=== PATIENT | female | born 1985 | race Caucasian/White ===

== ENCOUNTER 2016-07-10 15:51 | Emergency (ER) | payer OTHER ==
[~2016-07-10] VITALS: Ht 160 cm; Wt 49.9 kg
[~2016-07-10 15:51] MED LIST: AMOX875T PO; FLUT9.9S NS; HYDR-79 PO; HYDR-971 PO; NAPR500T PO
[2016-07-10 16:30] VITALS: BP 109/68
--- NOTE | 2016-07-10 16:34 | RAD ---
Left foot, 3 views, 07/10/2016: History: Foot injury, previous surgery Comparison is made to a study from 06/13/2016. A metallic plate with multiple screws remains in place transfixing the fracture of the proximal fifth metatarsal. The position of the plate appears to be unchanged. There is patchy bony demineralization. No new fracture is detected. IMPRESSION: 1. Stable, internally fixed fracture of the proximal fifth metatarsal. 2. Increasing patchy bony demineralization.
[2016-07-10] MEDS ORDERED: HYDR-971 PO (16:43)
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
== END 2016-07-10 16:58 | disposition home or self-care (01) ==
LOC: ER 15:51
DX: M79.672 Pain in left foot (principal); X58.XXXA Exposure to other specified factors, initial encounter; Y93.39 Activity, other involving climbing, rappelling and jumping off; Y99.8 Other external cause status; Y92.89 Other specified places as the place of occurrence of the external cause
CPT/HCPCS: 73630; 99284

== ENCOUNTER 2016-07-15 15:32 | Emergency (ER) | payer OTHER ==
[~2016-07-15] VITALS: Ht 160 cm; Wt 49.9 kg
--- NOTE | 2016-07-15 16:47 | ED.ADGEN ---
Past History Past Medical History: No Pertinent History Past Surgical History: Hysterectomy Alcohol Use: Occasionally Drug Use: None Adult General Chief Complaint Chief Complaint left lower extremity pain HPI HPI Patient is a 31 year old male who presents with left LE pain. Pain developed over the last day. She had gerard fracture surgery 5 weeks ago, was wearing a full boot immobilizer until today when she saw her surgeon. She report muscle wasting in that leg and when the pain was noticed, she appreciated swelling in the calf, which has somewhat improved. Pain in her leg is diffuse. She continues to have pain from her surgery. She had been taking norco and oxycodone for her post surgical pain. Reports ibuprofen and Tylenol "don't help ". No fevers. No h/o blood clots for her or family members. No chest pain or shortness of breath. Review of Systems Review of Systems Constitutional: Denies fever or chills [] Eyes: Denies change in visual acuity, redness, or eye pain [] HENT: Denies nasal congestion or sore throat [] Respiratory: Denies cough or shortness of breath [] Cardiovascular: denies chest pain GI: Denies abdominal pain, nausea, vomiting, bloody stools or diarrhea [] : Denies dysuria or hematuria [] Musculoskeletal: Denies back pain Integument: Denies rash or skin lesions [] Neurologic: Denies headache, focal weakness or sensory changes [] Current Medications Current Medications Current Medications Medications (Trade) Dose Ordered Sig/Kingsley Start Time Stop Time Status Last Admin Dose Admin Acetaminophen/ Hydrocodone Bitart (Lortab 5/325) 1 tab 1X ONCE 07/15/16 17:00 07/15/16 17:01 DC 07/15/16 16:51 1 TAB Allergies Allergies Allergies Coded Allergies Type Severity Reaction Last Updated Verified No Known Drug Allergies 05/24/15 No Physical Exam Physical Exam Constitutional: Well developed, well nourished, no acute distress, non-toxic appearance. [] HENT: Normocephalic, atraumatic, bilateral external ears normal, oropharynx moist, no oral exudates, nose normal. [] Eyes: PERRLA, EOMI, conjunctiva normal, no discharge. [] Neck: Normal range of motion, no tenderness, supple, no stridor. [] Cardiovascular:Heart rate regular with regular rhythm, no murmur [] Lungs & Thorax: Bilateral breath sounds clear to auscultation, no wheeze or crackles Abdomen: Bowel sounds normal, soft, no tenderness, no masses, no pulsatile masses. [] Skin: Warm, dry, no erythema, no rash. [] Back: No tenderness, no CVA tenderness. [] Extremities: LLE without appreciable edema, generalized posterior and thigh ttp , dp pulse 2+, well healed foot surgical scar, ROM in ankle intact, FROM knee, no erythema or increased warmth, no palpable cord. Neurologic: Alert and oriented X 3, normal motor function, normal sensory function, no focal deficits noted. [] Psychologic: Affect normal, judgement normal, mood normal. [] Current Patient Data Vital Signs Vital Signs Date Time Temp Pulse Resp B/P Pulse Ox O2 Delivery O2 Flow Rate FiO2 07/15/16 16:51 20 95 07/15/16 15:32 98.2 76 Room Air EKG EKG [] Radiology/Procedures Radiology/Procedures US LLE: Left leg venous Doppler study: Clinical indications: Left leg swelling and pain. Findings: Duplex sonography (including kimball scale evaluation and color flow and waveform spectral analysis) of the proximal aspect of the greater saphenous vein and the proximal aspect of the profunda femoral vein and the entire length of the common femoral and superficial femoral and popliteal veins and the tibioperoneal trunk and the proximal aspect of the posterior tibial and peroneal veins of the left leg was performed. Normal compressibility, augmentation of color Doppler flow after calf compression, and respiratory variation of Doppler flow is seen. Thus, there are no sonographic findings of deep venous thrombosis within these veins. Impression: There are no sonographic findings of deep venous thrombosis within the veins discussed above of the left lower extremity. Course & Med Decision Making Course & Med Decision Making Pertinent Labs and Imaging studies reviewed. (See chart for details) pt given 1 norco tab and US venous doppler ordered. No DVT on US. Recommend f/u with doctor. Heat, rest, elevation. Pt has new boot, hope symptoms will improve with new boot. Final Impression Final Impression leg pain[] Problems: Dragon Disclaimer Dragon Disclaimer This electronic medical record was generated, in whole or in part, using a voice recognition dictation system. CLARI COREAS MD Jul 15, 2016 16:47
[2016-07-15] MEDS ORDERED: HYDROCODONE/APAP 5/325MG TABLET. PO ONE (17:00)
--- NOTE | 2016-07-15 17:07 | RAD ---
Left leg venous Doppler study: Clinical indications: Left leg swelling and pain. Findings: Duplex sonography (including kimball scale evaluation and color flow and waveform spectral analysis) of the proximal aspect of the greater saphenous vein and the proximal aspect of the profunda femoral vein and the entire length of the common femoral and superficial femoral and popliteal veins and the tibioperoneal trunk and the proximal aspect of the posterior tibial and peroneal veins of the left leg was performed. Normal compressibility, augmentation of color Doppler flow after calf compression, and respiratory variation of Doppler flow is seen. Thus, there are no sonographic findings of deep venous thrombosis within these veins. Impression: There are no sonographic findings of deep venous thrombosis within the veins discussed above of the left lower extremity.
[2016-07-15 17:30] VITALS: BP 98/47
== END 2016-07-15 17:40 | disposition home or self-care (01) ==
LOC: ER 15:32
DX: M79.605 Pain in left leg (principal)
CPT/HCPCS: 93971; 99284-25

== ENCOUNTER → 2016-07-17 | Outpatient (CLI) | payer OTHER ==
[2016-07-15 17:30] VITALS: BP 98/47
--- NOTE | 2016-07-17 17:02 | RAD ---
Abdomen series with chest, 3 views, 07/17/2016: History: Abdominal pain There is a moderate amount of stool scattered throughout the colon. The abdominal gas pattern is otherwise unremarkable. No free air is seen in the abdomen. There is no evidence of organomegaly or abnormal abdominal calcifications. The heart size is normal. The lungs are clear. There is no evidence of pleural fluid. IMPRESSION: 1. Moderate amount of stool throughout the colon. 2. The abdomen is otherwise unremarkable.
== END | disposition home or self-care (01) ==
LOC: DXRADRC 14:47
PROVIDERS: ATTEND Physician Assistant Medical
DX: R10.32 Left lower quadrant pain (principal)
CPT/HCPCS: 74022

== ENCOUNTER 2016-07-21 19:05 | Emergency (ER) | payer OTHER ==
--- NOTE | 2016-07-21 19:49 | ACF ---
Admission Criteria Forms HEADACHES Clinical Indications for Admission to Inpatient Care (Place 'X' for any and all applicable criteria): Admission is indicated for ANY ONE of the following(1)(2)(3)(4): [X]I. Inpatient admission required rather than observational care (Also use Headaches: Observation Care as appropriate) because of ANY ONE of the following: [X]a) Severe pain requiring acute inpatient management [ ]b) Altered mental status that is severe or persistent [ ]c) Vomiting or dehydration that is severe or persistent [ ]d) New-onset focal neurologic deficit that is severe or persistent [ ]e) Hypertension requiring inpatient treatment [ ]f) Severe (new) neurologic findings requiring inpatient care as indicated by ANY ONE of following(9)(10): [ ]1) Papilledema [ ]2) Cerebral edema [ ]3) Mass effect on CT scan [ ]4) Cerebral bleeding, ischemia, or vasospasm(16) [ ]5) Hydrocephalus(17) [ ]6) Uncontrolled seizures [ ]g) IV infusion of anticoagulation, platelet inhibitors vasoactive, or antiarrhythmic medication. [ ]h) Cerebral bleeding, hydrocephalus, or vasospasm monitoring (16) [ ]i) Increased intracranial pressure or cerebral edema monitoring (17) [ ]j) Other condition, treatment or monitoring requiring inpatient admission [ ]II. Unruptured but threatening aneurysm or vascular malformation [ ]III. Venous sinus thrombosis [ ]IV. Increased intracranial pressure [ ]V. Cerebral spinal fluid leak with decreased intracranial pressure [ ]. Medication-overuse headache that has failed all outpatient management options [ ]VII. Vasculitis (eg, giant cell (temporal) arteritis, central nervous system vasculitis) requiring IV corticosteroids, IV antithrombotic therapy, or inpatient monitoring (eg, visual symptoms or findings, other ischemic manifestations)[A](10)(11) Extended stay beyond goal length of stay may be needed for (27): [ ]a) Intractable migraine [ ]b) Subarachnoid or intracranial hemorrhage [ ]c) Malignant hypertension [ ]d) Detoxification from drug withdrawal in medication-overuse headache (29) The original [facility] [employer] content created by [facility] has been revised. The portions of the content which have been revised are identified through the use of italic text or in bold, and Sandra Cullen has neither reviewed nor approved the modified material.All other unmodified content is copyright [facility]. Please see references footnoted in the original [facility] edition 2016 Admission Criteria Met?: Yes JUAN LUIS CAPPS. Jul 21, 2016 19:49
[2016-07-21] MEDS ORDERED: PROCHLORPERAZINE 10 MG/2 ML VIAL. IV ONE (20:20)
[2016-07-21] MEDS ORDERED: IV NORMAL SALINE 1,000ML 1,000 ML IV ONE (20:20)
[2016-07-21] MEDS ORDERED: diphenhydrAMINE 50 MG/ML VIAL IVP ONE (20:20)
[2016-07-21] MEDS ORDERED: LORazepam 2 MG/ML VIAL IV ONE (20:20)
--- NOTE | 2016-07-21 20:42 | PHYS DOC ---
General Chief Complaint: HEADACHE Stated Complaint: MIGRAINE Time Seen by MD: 19:22 Source: patient, family Problems: History of Present Illness Initial Comments Patient here for migraine headaches. Patient has long history of migraine headaches for which she's been seen in the ER on multiple occasions. Headache is located over the left side of the scalp, extending just before the near the occipital region. She says this is exactly the same as her usual migraine headaches. There's no history of injury or trauma. This one started earlier this morning. She was able take a nap when she woke up the headache was even worse. She's had no visual change but she does have photophobia. There is no speech change. There's no fever chills URI symptoms or cough. There's no chest pain or shortness of breath. She has some nausea but no vomiting. She's had decreased by mouth food and fluid intake. There is no abdominal pain. There is no change in bowel or bladder habits. She denies any acute focal extremity or neurologic complaints. Patient's taken some narcotic pain medication, which she had left over from foot surgery, for this home without help. She notes no other increased or decreasing factors. Patient's past medical history is remarkable for migraine headaches. She's recently had a foot fracture with surgical repair on the left. She also has depression and she takes trazodone at night for sleep. She smokes a half-pack of cigarettes daily. She is an occasional social user of ethanol. Allergies: Coded Allergies: No Known Drug Allergies (Unverified , 05/24/15) Past Medical History Medical History: migraines, other Surgical History: noncontributory, other Psychosocial History: depression Social History Smoker: less than 1 pack/day Alcohol: occasionally Review of Systems All Other Systems: Reviewed and Negative Physical Exam General Appearance: WD/WN, no apparent distress Eyes: bilateral eye EOMI, bilateral eye PERRL, bilateral eye normal inspection Ear, Nose, Throat: normal ENT inspection, normal pharynx, other Neck: full range of motion, supple, normal inspection Respiratory: lungs clear, normal breath sounds, no respiratory distress Cardiovascular: regular rate, rhythm, no edema Gastrointestinal: non tender, soft, no organomegaly Back: no CVA tenderness, no vertebral tenderness Extremities: non-tender, normal inspection, no pedal edema Neurologic/Psychiatric: internet manager II-XII nml as tested, no motor/sensory deficits, alert, normal mood/affect, oriented x 3 Skin: normal color Lymphatic: no adenopathy Comments Generally this is a thin white female in no acute distress. She sits upright with dark glasses on. Vitals are as noted. Pertinent findings on physical exam shows a head atraumatic normocephalic. She is mildly tender over the left scalp from the area just anterior to the ear, over the area, extending to the occipital condyle. She says palpation does increase reproduce her pain. There is no signs of trauma. Pupils are equal reactive light and accommodation. Extra ocular movements are intact. Ears and throat clear. Neck is supple without adenopathy or JVD. There's no meningeal signs. Chest is clear to auscultation bilaterally. Cardiac vascular exam shows regular rate and rhythm without murmur. The abdomen is soft and nontender without masses or megaly. There is no perineal findings. Back shows no CVA tenderness. Extremity show no rashes, cyanosis, or edema. Neurologic exam shows patient awake alert oriented 4. Cranial nerves II through XII grossly intact. Strength 5 over 5 equal all sites tested. There are no gross sensory deficits. She stands without difficulty and Romberg is negative. Remainder of physical exam is clinically unremarkable. Orders, Labs, Meds Old charts note multiple prior ER visits for variety of issues. This is her 10th visit this year alone. She's been seen here on several occasions for a foot fracture and than postoperative pain following fracture. She's also been seen for sinusitis, minor injuries, migraine headaches, and abdominal pain extending back in the last several years. Most recent visit for migraine was in April of this year where she received Compazine and Benadryl and Valium and reported relief of pain. Early in the ED course, I did ask the patient about her history of frequent and excessive ED use. Patient says some these visits are because when she calls her foot doctor for continued postoperative pain, they refer her to the emergency department. She also says that she has trouble getting into a doctor, and is now transitioning from her current physician who is a natural path to a new doctor. Her also says that they come here because the care that they always get is after hours, and when they try to going to urgent care center in [place] it's too busy. Patient states she understands why was asking because her mother had a history of drug abuse and of an aneurysm. I indicated I was actually asking because sometimes people use the ER frequently, we can set her with some resources like a primary care referral which may be helpful. [id number] Patient resting comfortably in the ED. She says her headache is essentially gone at this time. I discussed with the patient this really does seem to be a recurrence of her usual migraine. As is no new history of injury or trauma, her headache is not different in any way the usual migraine, suggest that I didn't think labs or CT scan would be of any benefit. Patient is agreeable to defer further workup as well. She already has oxycodone at home postoperatively that she can use for pain. She has Imitrex at home, but she says she probably requires an increased dose but we'll follow this up with her primary care physician. She also says she has some nausea medicine at home as well declines any prescriptions here. We'll ask her to follow up with primary care for her recurrent headaches or to return the ER sooner as needed if worsen anyway. As noted, she is currently looking for new primary care physician and we hope she is able to find a new physician. She looks well, in no acute discomfort distress, neurologically intact, and okay for discharge home with family. FARHANA REBOLLAR MD Jul 21, 2016 20:41
[2016-07-21 21:55] VITALS: BP 101/62
== END 2016-07-21 21:55 | disposition home or self-care (01) ==
LOC: ER 19:09
DX: G43.909 Migraine, unspecified, not intractable, without status migrainosus (principal); R11.0 Nausea; F32.9 Major depressive disorder, single episode, unspecified; F17.210 Nicotine dependence, cigarettes, uncomplicated
CPT/HCPCS: 96361; 96374; 96375; 99284; J0780; J1200; J2060; J7030

== ENCOUNTER → 2016-07-29 | Outpatient (CLI) | payer OTHER ==
[2016-07-21 21:55] VITALS: BP 101/62
--- NOTE | 2016-07-29 15:52 | RAD ---
Left foot radiographs History: Left foot fracture, Soni fracture 7 weeks ago, trouble flattening the toes. Comparison: 07/10/2016. Findings: AP, lateral, and oblique views of left foot. 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 Fixation hardware with orthopedic plate and multiple orthopedic screws can be seen involving the fifth metatarsal. Appearance of the hardware is similar to previous study. Fracture line is not well seen and there is evidence of bridging callus formation. Impression: 1. Healing of fifth metatarsal fracture site. No interval change in appearance of hardware. 2. Disuse osteopenia.
== END | disposition home or self-care (01) ==
LOC: DXRADRC 14:13
PROVIDERS: ATTEND Family Medicine
DX: S92.352D Displaced fracture of fifth metatarsal bone, left foot, subsequent encounter for fracture with routine healing (principal); M85.872 Other specified disorders of bone density and structure, left ankle and foot; X58.XXXD Exposure to other specified factors, subsequent encounter
CPT/HCPCS: 73630

== ENCOUNTER 2016-09-29 00:29 | Emergency (ER) | payer OTHER ==
[~2016-09-29] VITALS: Ht 160 cm; Wt 50.6 kg
--- NOTE | 2016-09-29 01:02 | PHYS DOC ---
Past History Past Medical History: Depression, Migraines Past Surgical History: Hysterectomy, Other Alcohol Use: None Drug Use: None Adult General HPI HPI 1-year-old female with a history of anxiety depression and migraines now presents to the emergency department complaining of gradual onset of headache typical for her over the last few hours patient involved a migraine and it gradually has gotten worse. Shoulder and vomiting. No prodromal symptoms prior to onset. Total sweats or shaking chills. No stiff neck. Mild photophobia. No neurologic complaints besides headache. Patient has a history of depression but she is not suicidal or significantly depressed at this time. Review of Systems Review of Systems Constitutional: Denies fever or chills [] Eyes: Denies change in visual acuity, redness, or eye pain [] HENT: Denies nasal congestion or sore throat [] Respiratory: Denies cough or shortness of breath [] Cardiovascular: No additional information not addressed in HPI [] GI: Denies abdominal pain, nausea, vomiting, bloody stools or diarrhea [] : Denies dysuria or hematuria [] Musculoskeletal: Denies back pain or joint pain [] Integument: Denies rash or skin lesions [] Neurologic: Denies headache, focal weakness or sensory changes [] Endocrine: Denies polyuria or polydipsia [] Allergies Allergies Allergies Coded Allergies Type Severity Reaction Last Updated Verified No Known Drug Allergies 05/24/15 No Physical Exam Physical Exam 31-year-old female in no acute distress appears to be in mild discomfort/ supple neck /nonfocal neurologic exam Constitutional: Well developed, well nourished, no acute distress, non-toxic appearance. [] HENT: Normocephalic, atraumatic, bilateral external ears normal, oropharynx moist, no oral exudates, nose normal. [] Eyes: PERRLA, EOMI, conjunctiva normal, no discharge. [] Neck: Normal range of motion, no tenderness, supple, no stridor. [] Cardiovascular:Heart rate regular rhythm, no murmur [] Lungs & Thorax: Bilateral breath sounds clear to auscultation [] Abdomen: Bowel sounds normal, soft, no tenderness, no masses, no pulsatile masses. [] Skin: Warm, dry, no erythema, no rash. [] Back: No tenderness, no CVA tenderness. [] Extremities: No tenderness, no cyanosis, no clubbing, ROM intact, no edema. [] Neurologic: Alert and oriented X 3, normal motor function, normal sensory function, no focal deficits noted. [] Psychologic: Affect normal, judgement normal, mood normal. [] EKG EKG [] Radiology/Procedures Radiology/Procedures [] Course & Med Decision Making Course & Med Decision Making Pertinent Labs and Imaging studies reviewed. (See chart for details) Signs and symptoms consistent with migraine headache with gradual onset typical for patient. Afebrile and well-appearing with a supple neck. Nonfocal neurologic exam. Treatment initiated with anti-inflammatory medication, steroids , Benadryl and Reglan. Patient improved on reevaluation appears comfortable. No further workup or treatment indicated. Patient agrees with outpatient follow-up and strict return precautions will be given. [] Dragon Disclaimer Dragon Disclaimer This chart was dictated in whole or in part using Voice Recognition software in a busy, high-work load, and often noisy Emergency Department environment. It may contain unintended and wholly unrecognized errors or omissions. Departure Departure: Impression: Primary Impression: Migraine headache Disposition: 01 HOME, SELF-CARE Condition: IMPROVED Referrals: EVERETT HILL DO (PCP) Patient Instructions: Migraine Headache Additional Instructions: Your suffering from a migraine headache today. Rest and drink plenty of fluids. Ibuprofen 600 mg every 6 hours as needed for pain. You may get relief with Benadryl. Take Reglan as needed as you may find it affords she is significant headache relief. Follow-up with your doctor tomorrow and return immediately for new severe or worsening symptoms Scripts Metoclopramide Hcl (REGLAN) 10 Mg Tablet 10 MG PO Q6HRS Y for NAUSEA, #14 TAB Prov: BROOK LEDEZMA MD 09/29/16 BROOK LEDEZMA MD Sep 29, 2016 01:02
[2016-09-29] MEDS ORDERED: DEXAMETHASONE SOD PHOS 10 MG/ML VIAL IM ONE (01:15)
[2016-09-29] MEDS ORDERED: METOCLOPRAMIDE HCL 10 MG/2 ML VIAL. IM ONE (01:15)
[2016-09-29] MEDS ORDERED: KETOROLAC 60 MG/2 ML VIAL. IM ONE (01:15)
[2016-09-29] MEDS ORDERED: diphenhydrAMINE HCL 25 MG CAPSULE PO ONE (01:15)
[2016-09-29] MEDS ORDERED: METO10TA81 PO (01:30)
[2016-09-29 01:35] VITALS: BP 100/61
== END 2016-09-29 01:40 | disposition home or self-care (01) ==
LOC: ER 00:29
DX: G43.909 Migraine, unspecified, not intractable, without status migrainosus (principal); F41.8 Other specified anxiety disorders
CPT/HCPCS: 96372; 99284; J1100; J1885; J2765; Q0163

== ENCOUNTER 2016-12-05 20:01 | Emergency (ER) | payer OTHER ==
[~2016-12-05] VITALS: Ht 160 cm; Wt 51.0 kg
[~2016-12-05 20:01] MED LIST changes: +METO10TA81 PO
[2016-12-05 20:05] VITALS: BP 118/65
[2016-12-05] MEDS ORDERED: naproxen (20:27)
[2016-12-05] MEDS ORDERED: prozac (20:27)
[2016-12-05] MEDS ORDERED: trazodone (20:27)
[2016-12-05] MEDS ORDERED: IBUP800T19 PO (20:27)
--- NOTE | 2016-12-05 20:41 | PHYS DOC ---
Past History Past Medical History: Anxiety, Depression, Migraines, Other Past Surgical History: Hysterectomy, Other Alcohol Use: Rarely Drug Use: None Adult General Chief Complaint Chief Complaint: HEADACHE HPI HPI Patient is a 31-year-old female brought to the ED by her with the complaint of migraine headache. The migraine has been present all day. She woke up with it. It's typical for her migraines. It is left-sided. She's had nausea with it. She has photophobia. She has tried naproxen and ibuprofen without relief. She also feels like her left lower back is "out", she feels like it's "catching ". This has been present all day but getting worse. She has not injured her back recently. She has had some urinary frequency but says she's been drinking lots of fluids. She has no dysuria. Denies fever or chills. Patient does smoke cigarettes. Patient has seen a neurologist in [facility] about her migraines. She tried Imitrex but it didn't work. She was also tried on some other medication, can't remember what it was, but it didn't work. She has not been back to report to her neurologist that the migraines continue and the medication is not effective. Review of Systems Review of Systems Constitutional: Denies fever or chills [] Eyes: Positive photophobia HENT: Denies nasal congestion or sore throat [] : As in history of present illness Musculoskeletal: Left low back pain as in history of present illness Allergies Allergies Allergies Coded Allergies Type Severity Reaction Last Updated Verified No Known Drug Allergies 12/05/16 No Physical Exam Physical Exam Constitutional: Well developed, well nourished, no acute distress, non-toxic appearance. Alert, mentating normally, warm and dry. HENT: Normocephalic, atraumatic, bilateral external ears normal, nose normal. [ ] Eyes: conjunctiva normal, no discharge. [] Neck: Normal range of motion, no stridor. [] Skin: Warm, dry, no erythema, no rash. [] Back: No tenderness, no CVA tenderness. Patient indicates area of back pain over her left posterior superior iliac spine approximately, there is no skin color change, no swelling, no abnormality noted, no significant tenderness to palpation. Extremities: No tenderness, no cyanosis, no clubbing, ROM intact, no edema. [] Neurologic: Alert and oriented X 3, normal motor function, no focal deficits noted. Strength 5 over 5 and equal bilaterally, normal speech. EKG EKG [] Radiology/Procedures Radiology/Procedures [] Course & Med Decision Making Course & Med Decision Making Pertinent Labs and Imaging studies reviewed. (See chart for details) 31-year-old female with a long history of migraines presents with a typical migraine today. She and her state that she has been to the emergency department many times for migraines. We discussed treatment options. She has not been vomiting and is not dehydrated, thinks that she would do just as well with an injection and then to go home. See instructions for plan. I urged her to follow up with her neurologist. [] Dragon Disclaimer Dragon Disclaimer This chart was dictated in whole or in part using Voice Recognition software in a busy, high-work load, and often noisy Emergency Department environment. It may contain unintended and wholly unrecognized errors or omissions. Departure Departure: Impression: Primary Impression: Migraine Disposition: 01 HOME, SELF-CARE Condition: STABLE Patient Instructions: General Headache Without Cause, [id number], Migraine Headache, [id number] Additional Instructions: No driving for 12 hours due to the medications you were given. Home to rest, try to sleep all night in a dark quiet room. As we discussed, make a follow-up appointment with your neurologist to let them know that the medications are not helping and see if you can try something else. SULLY HOBSON MD Dec 05, 2016 20:41
[2016-12-05] MEDS ORDERED: ORPHENADRINE CITRATE 60 MG/2 ML VIAL. IM ONE (21:00)
[2016-12-05] MEDS ORDERED: KETOROLAC 60 MG/2 ML VIAL. IM ONE (21:00)
[2016-12-05] MEDS ORDERED: METOCLOPRAMIDE 10 MG TABLET PO ONE (21:30)
== END 2016-12-05 21:00 | disposition home or self-care (01) ==
LOC: ER 20:01
DX: G43.909 Migraine, unspecified, not intractable, without status migrainosus (principal); F17.210 Nicotine dependence, cigarettes, uncomplicated; F41.9 Anxiety disorder, unspecified; F32.9 Major depressive disorder, single episode, unspecified
CPT/HCPCS: 96372; 99284; J1885; J2360; J8597

== ENCOUNTER 2017-08-30 08:38 | Emergency (ER) | payer OTHER ==
[~2017-08-30] VITALS: Ht 160 cm; Wt 53.4 kg
[~2017-08-30 08:38] MED LIST changes: +IBUP800T19 PO; +NAPR-683 PO; -NAPR500T PO; +naproxen; +prozac; +trazodone
[2017-08-30] MEDS ORDERED: IV NORMAL SALINE 1,000ML 1,000 ML IV SCH (08:52)
--- NOTE | 2017-08-30 09:12 | EKG ---
[address] [address] Test Date: 2017-08-30 Test Time: 09:04:38 Pat Name: DEONTE HECTOR Department: Room: Gender: F Peer Counselor: : 1985 Requested By: MARCIA PEREZ Order Number: [id number] Reading MD: Measurements Intervals [place] Rate: 98 P: 64 ID: [id number] QRS: 60 QRSD: 74 T: 39 QT: 334 QTc: 428 Interpretive Statements SINUS RHYTHM LEFT ATRIAL ABNORMALITY ABNORMAL ECG RI6.01 Compared to ECG 12/29/2015 20:02:23 Atrial abnormality now present T-wave abnormality no longer present ST (T wave) deviation no longer present
--- NOTE | 2017-08-30 09:24 | PHYS DOC ---
Past History Past Medical History: Anxiety, Depression, Migraines, Other Past Surgical History: Hysterectomy, Other Alcohol Use: Occasionally Drug Use: None Adult General Chief Complaint Chief Complaint: COUGH HPI HPI 32-year-old female presents with 5 day history of cough and progressive shortness of breath. The cough is sometimes productive of yellowish sputum. The last couple of days she has felt more short of breath and had episodes where she just couldn't stop coughing. She is a smoker. She denies chest pain, diaphoresis, fever, or chills. She was treated 3 weeks ago for a sinus infection with azithromycin. She has no history of asthma or COPD. No history of allergies. Review of Systems Review of Systems Constitutional: Denies fever or chills [] Eyes: Denies change in visual acuity, redness, or eye pain [] HENT: Denies nasal congestion or sore throat [] Respiratory: Has cough with mild shortness of breath [] Cardiovascular: No additional information not addressed in HPI [] GI: Denies abdominal pain, nausea, vomiting, bloody stools or diarrhea [] : Denies dysuria or hematuria [] Musculoskeletal: Denies back pain or joint pain [] Integument: Denies rash or skin lesions [] Neurologic: Denies headache, focal weakness or sensory changes [] Endocrine: Denies polyuria or polydipsia [] All other systems were reviewed and found to be within normal limits, except as documented in this note. Current Medications Current Medications Current Medications Medications (Trade) Dose Ordered Sig/Kingsley Start Time Stop Time Status Last Admin Dose Admin Sodium Chloride 1,000 ml @ 1,000 mls/hr Q1H 08/30/17 08:52 08/30/17 09:51 Allergies Allergies Allergies Coded Allergies Type Severity Reaction Last Updated Verified No Known Drug Allergies 08/30/17 No Physical Exam Physical Exam Constitutional: Well developed, well nourished, no acute distress, non-toxic appearance. [] HENT: Normocephalic, atraumatic, bilateral external ears normal, oropharynx moist, no oral exudates, nose normal. [] Eyes: PERRLA, EOMI, conjunctiva normal, no discharge. [] Neck: Normal range of motion, no tenderness, supple, no stridor. [] Cardiovascular:Heart rate regular rhythm, no murmur [] Lungs & Thorax: Bilateral diffuse expiratory wheezing [] Abdomen: Bowel sounds normal, soft, no tenderness, no masses, no pulsatile masses. [] Skin: Warm, dry, no erythema, no rash. [] Back: No tenderness, no CVA tenderness. [] Extremities: No tenderness, no cyanosis, no clubbing, ROM intact, no edema. [] Neurologic: Alert and oriented X 3, normal motor function, normal sensory function, no focal deficits noted. [] Psychologic: Affect normal, judgement normal, mood normal. [] Current Patient Data Vital Signs Vital Signs Date Time Temp Pulse Resp B/P (MAP) Pulse Ox O2 Delivery O2 Flow Rate FiO2 08/30/17 08:38 98.1 128 24 97 Room Air EKG EKG Normal sinus rhythm, rate 98, normal axis, no ST elevations or depressions[] Radiology/Procedures Radiology/Procedures Chest, PA and Lateral: Technique: PA and lateral views of the chest were obtained. History: Shortness of breath, cough for 5 days. Comparison: None. Findings: The heart and pulmonary vasculature appear within normal limits. The lungs are clear. The pleural margins are clear. Impression: No acute chest process is seen. Electronically signed by: Cristhian Parker MD (08/30/2017 9:19 AM) [facility][] Course & Med Decision Making Course & Med Decision Making Pertinent Labs and Imaging studies reviewed. (See chart for details) Patient had bilateral wheezing so I gave her a DuoNeb treatment. The patient was given 2 DuoNeb treatments with some improvement. She had subjective improvement in her breathing. I also gave 125 of Solu-Medrol and will give her a three-day prescription for prednisone at home. [] Dragon Disclaimer Dragon Disclaimer This electronic medical record was generated, in whole or in part, using a voice recognition dictation system. Departure Departure: Referrals: NON,STAFF (PCP) MARCIA PEREZ DO August 30, 2017 09:24
[2017-08-30] MEDS ORDERED: IPRATRPIUM/ALBUTEROL 0.5/2.5MG 3 ML NEBU. NEB ONE ×2 (09:30→10:45)
[2017-08-30 09:58] LABS: ALBUMIN 3.8 g/dL (3.4-5.0); ALBUMIN/GLOBULIN RATIO 1.1 (1.0-1.7); CALCIUM 9.1 mg/dL (8.5-10.1); GFR 64.3; POTASSIUM 4.2 mmol/L (3.5-5.1); TOTAL BILIRUBIN 0.5 mg/dL (0.2-1.0); TOTAL PROTEIN 7.4 g/dL (6.4-8.2)
[2017-08-30 10:04] LABS: BASO # 0.1 x10^3/uL (0.0-0.2); BASO % 1 % (0-3); EOS # 0.2 x10^3/uL (0.0-0.7); EOS % 3 % (0-3); HEMATOCRIT 45.2 % (36.0-47.0); HEMOGLOBIN 15.3 g/dL (12.0-15.5); LYMPH # 2.3 x10^3/uL (1.0-4.8); LYMPH % 29 % (24-48); MEAN CORPUSCULAR HEMOGLOBIN 33 pg (25-35); MEAN CORPUSCULAR HGB CONC 34 g/dL (31-37); MEAN CORPUSCULAR VOLUME 97 fL (79-100); MONO # 0.6 x10^3/uL (0.0-1.1); MONO % 8 % (0-9); NEUT # 4.8 x10^3uL (1.8-7.7); NEUT % 60 % (31-73); PLATELET COUNT 239 x10^3/uL (140-400); RED BLOOD COUNT 4.68 x10^6/uL (3.50-5.40); RED CELL DISTRIBUTION WIDTH 13.3 % (11.5-14.5)
[2017-08-30] MEDS ORDERED: methylPREDNISolone SOD SUCC PF 125 MG/2 ML VIAL. IV ONE (11:00)
[2017-08-30] MEDS ORDERED: PRED50TA PO (11:14)
[2017-08-30 11:21] VITALS: BP 98/67
== END 2017-08-30 11:21 | disposition home or self-care (01) ==
LOC: ER 08:38
DX: R06.2 Wheezing (principal); R06.02 Shortness of breath; R09.3 Abnormal sputum; G43.909 Migraine, unspecified, not intractable, without status migrainosus; F41.9 Anxiety disorder, unspecified; F32.9 Major depressive disorder, single episode, unspecified
CPT/HCPCS: 36415; 71046; 80053; 84484; 85025; 93005; 94640; 96374; 99285; J2930; J7620; J7030

== ENCOUNTER → 2018-11-10 | Outpatient (CLI) | payer SELFPAY ==
[~2018-11-10] MED LIST changes: +HYDR-1179 PO; +HYDR-3165 PO; -HYDR-79 PO; -HYDR-971 PO; +PRED50TA PO
--- NOTE | 2018-11-10 17:43 | RAD ---
EXAM: Lumbar spine 7 views with flexion/extension. HISTORY: Low back pain and lower extremity radiculopathy. COMPARISON: None. FINDINGS: A neutral, alignment is normal. On flexion and extension, there is no abnormal translational motion. Vertebral body heights are maintained, and no fractures are identified. Intervertebral disc heights are maintained. IMPRESSION: 1. No fracture or clear degenerative change. Electronically signed by: Yajaira Miner MD (11/10/2018 5:40 PM) [facility]
== END | disposition home or self-care (01) ==
LOC: DXRAD 17:11
PROVIDERS: ATTEND Registered Nurse
DX: M54.9 Dorsalgia, unspecified (principal)
CPT/HCPCS: 72114

== ENCOUNTER 2019-04-17 20:18 | Emergency (ER) | payer BC ==
[~2019-04-17] VITALS: Ht 160 cm; Wt 49.4 kg
--- NOTE | 2019-04-17 20:23 | PHYS DOC ---
Past History Past Medical History: Anxiety, Depression, Migraines, Other Past Surgical History: Hysterectomy, Other Alcohol Use: Occasionally Drug Use: None Adult General Chief Complaint Chief Complaint: ".. This all started.. .will some pain... and adenopathy on the Lt side.. I went to [facility]...they didnt find anything... the I went to Dr. Bullard.. he started me on doxycycline and prednisone.. I got this really painful rash on the left side of my head and face... I can't even stand the touch left side of my forehead HPI HPI Patient is a 33 year old female who presents with above hx and complaints of zoster rash on the left side of her scalp and forehead. (Trigemina V1 distribution left). Patient did have chickenpox as a child. Patient has had somewhat of a viral onset the last 3 weeks. Patient does work as a schoolteacher. No history of immunosuppression. No history of IV drug use. Patient has some blisters in scalp and Lt anterior cervical chain adenopathy. Review of Systems Review of Systems Constitutional: History of fever or chills [] Eyes: Denies change in visual acuity, redness, or eye pain [] HENT: Hx nasal congestion or sore throat . Recent history of rash on the left side of forehead and scalp. Mild cervical chain adenopathy on left Respiratory: Denies cough or shortness of breath [] Cardiovascular: No additional information not addressed in HPI [] GI: Denies abdominal pain, nausea, vomiting, bloody stools or diarrhea [] : Denies dysuria or hematuria [] Musculoskeletal: Denies back pain or joint pain [] Integument: Zoster lesions left side of head and scalp Neurologic: Denies headache, focal weakness or sensory changes [] Endocrine: Denies polyuria or polydipsia [] All other systems were reviewed and found to be within normal limits, except as documented in this note. Family History Family History Noncontributory Current Medications Current Medications See nursing for home meds Allergies Allergies Allergies Coded Allergies Type Severity Reaction Last Updated Verified No Known Drug Allergies 08/30/17 No Physical Exam Physical Exam Constitutional: Well developed, well nourished, in acute distress, non-toxic appearance. [] HENT: Normocephalic, atraumatic, bilateral external ears normal, oropharynx moist, no oral exudates, nose normal. [-Except ]Zoster on left forehead and scalp. Trigeminal V1 distribution Eyes: PERRLA, EOMI, conjunctiva normal, no discharge. [] Neck: Normal range of motion, no tenderness, supple, no stridor. []Mild adenopathy anterior left cervical . Cardiovascular:Heart rate regular rhythm, no murmur [] Lungs & Thorax: Bilateral breath sounds clear to auscultation [] Abdomen: Bowel sounds normal, soft, no tenderness, no masses, no pulsatile masses. Old surgical scar Skin: Warm, dry, no erythema, zoster rash. [] Back: No tenderness, no CVA tenderness. [] Extremities: No tenderness, no cyanosis, no clubbing, ROM intact, no edema. [] Neurologic: Alert and oriented X 3, normal motor function, normal sensory fu nction, no focal deficits noted. [] Psychologic: Affect anxious, judgement normal, mood normal. [] EKG EKG [] Radiology/Procedures Radiology/Procedures [] Course & Med Decision Making Course & Med Decision Making Pertinent Labs and Imaging studies reviewed. (See chart for details) Follow-up with Dr. Bullard to evaluate for immunosuppression. Review ED labs with Dr. Bullard. Patient to take either acyclovir 800 mg every 4 hours or famciclovir 800 mg 3 times a day. Advised patient she is infectious status, if she has fevers or blisters. Tylenol and ibuprofen for pain for marked pain may use Vicoprofen 1. Herpetic Zoster Trigeminal V 1 distribution left 2. Cervical adenopathy . [] Dragon Disclaimer Dragon Disclaimer This electronic medical record was generated, in whole or in part, using a voice recognition dictation system. Departure Departure: Disposition: HOME/RESIDENCE PRIOR TO ADM Condition: STABLE Referrals: MICHAEL BULLARD MD (PCP) Scripts Acyclovir (ACYCLOVIR) 800 Mg Tablet 800 MG PO every 4 hrs PRN for 5 x day, #10 TAB Prov: EVARISTO NORTH MD 04/17/19 Famciclovir (FAMCICLOVIR) 500 Mg Tablet 500 MG PO TID for zoster for 7 Days, #21 TAB Prov: EVARISTO NORTH MD 04/17/19 Hydrocodone/Ibuprofen (HYDROCODONE-IBUPROFEN 7.5-200 ) 1 Each Tablet 1 TAB PO PRN Q6HRS PRN for PAIN, #30 TAB 0 Refills Prov: EVARISTO NORTH MD 04/17/19 Sabino Disclaimer This chart was dictated in whole or in part using Voice Recognition software in a busy, high-work load, and often noisy Emergency Department environment. It may contain unintended and wholly unrecognized errors or omissions. EVARISTO NORTH MD Apr 17, 2019 20:23
[2019-04-17] MEDS ORDERED: ACYC800T PO (20:55)
[2019-04-17] MEDS ORDERED: FAMC500T PO (20:55)
[2019-04-17] MEDS ORDERED: HYDR-1179 PO (20:55)
[2019-04-17] MEDS ORDERED: ACYCLOVIR 200 MG CAPSULE PO ONE (21:00)
[2019-04-17] MEDS ORDERED: LIDOCAINE 5% TOPICAL OINTMENT 35GM TUBE. TP ONE (21:00)
[2019-04-17 21:43] VITALS: BP 109/61
[2019-04-17 21:48] LABS: BASO % 0 % (0-3); EOS # 0.1 x10^3/uL (0.0-0.7); EOS % 1 % (0-3); HEMATOCRIT 40.5 % (36.0-47.0); HEMOGLOBIN 13.8 g/dL (12.0-15.5); LYMPH % 37 % (24-48); MEAN CORPUSCULAR HEMOGLOBIN 32 pg (25-35); MEAN CORPUSCULAR HGB CONC 34 g/dL (31-37); MEAN CORPUSCULAR VOLUME 94 fL (79-100); MONO # 0.7 x10^3/uL (0.0-1.1); MONO % 8 % (0-9); NEUT # 4.3 x10^3uL (1.8-7.7); NEUT % 53 % (31-73); PLATELET COUNT 228 x10^3/uL (140-400); RED BLOOD COUNT 4.33 x10^6/uL (3.50-5.40); RED CELL DISTRIBUTION WIDTH 13.2 % (11.5-14.5); WHITE BLOOD COUNT 8.1 x10^3/uL (4.0-11.0)
[2019-04-17 21:58] LABS: CALCIUM 9.1 mg/dL (8.5-10.1); GFR 63.9; POTASSIUM 3.3 mmol/L (3.5-5.1)
[2019-04-17 22:03] LABS: ALBUMIN 4.2 g/dL (3.4-5.0); DIRECT BILIRUBIN 0.1 mg/dL (0.0-0.2); TOTAL BILIRUBIN 0.3 mg/dL (0.2-1.0); TOTAL PROTEIN 7.7 g/dL (6.4-8.2)
== END 2019-04-17 22:11 | disposition home or self-care (01) ==
LOC: ER 20:18
DX: B02.22 Postherpetic trigeminal neuralgia (principal); R59.0 Localized enlarged lymph nodes; F41.9 Anxiety disorder, unspecified; F32.9 Major depressive disorder, single episode, unspecified; G43.909 Migraine, unspecified, not intractable, without status migrainosus
CPT/HCPCS: 36415; 80048; 80076; 84443; 85025; 86703; 86705; 86709; 86803; 87340; 99284

== ENCOUNTER 2019-08-28 21:54 | Emergency (ER) | payer BC ==
[~2019-08-28] VITALS: Ht 160 cm; Wt 50.0 kg
[~2019-08-28 21:54] MED LIST changes: +ACYC800T PO; +FAMC500T3 PO
--- NOTE | 2019-08-28 22:03 | PHYS DOC ---
Past History Past Medical History: Anxiety, Depression, Hyperthyroid, Hypothyroid, Migraines, Ovarian Cyst, STD Past Medical History Polycystic ovary. HPV Past Surgical History: Hysterectomy, Other Additional Past Surgical Histo: LEFT FOOT Smoking: Cigarettes Alcohol Use: Occasionally Drug Use: None General Adult HPI: HPI: .."..I am worried...I got a STD...I had a one night stand about two months ago.. and I am having invasive thoughts or fear... I got a STD...I took 7 days of doxycycline I had left over from a previous bronchitis infection... I been t alking to my sister ..who said not to worry about it..but I can't stop... the worry.. and anxiety.. I am getting obsessed.. with the thoughts... I have gotten STD... I am getting depressed... Cannot sleep... I have had a history of HPV... And had a abnormal Pap exam and ended up having to have a hysterectomy..." Patient is a 34 year old female who presents with above hx and complaints of "female problems.". Patient advises she had a incident where she became intoxicated and had unprotected sex approximately 2 months ago. Patient did take 7 days of doxycycline antibiotic, left over from a bronchitis infection. Patient denies any current discharge but has had some dysuria. Patient has had a history of HPV and eventual hysterectomy 4 years ago.. Patient advised the un protected sexual contact was vaginal intercourse. No rectal intercourse. No oral sex. Patient does not know if the sexual partner has symptoms. Patient has had 12 sexual partners in her lifetime. Patient does have significant medical history for polycystic ovary, autoimmune thyroiditis history and anxiety disorder. Patient advises anxiety disorder did require meds and counseling at one time. The pt. follows with as primary. Endocrinology-Dr. Middleton at [facility]. Patient has had travel outside the [place] area , visit her sister in [place], [place] on August 07 for approximately 1 week. No specific ill contacts. No history immunosuppression. No current fevers. Review of Systems: Review of Systems: Constitutional: Denies fever or chills Eyes: Denies change in visual acuity HENT: Denies nasal congestion or sore throat Respiratory: Denies cough or shortness of breath Cardiovascular: Denies chest pain or edema GI: Denies abdominal pain, nausea, vomiting, bloody stools or diarrhea : Hx dysuria Musculoskeletal: Denies back pain or joint pain Integument: Denies rash Neurologic: Denies headache, focal weakness or sensory changes Endocrine: Denies polyuria or polydipsia Lymphatic: Denies swollen glands Psychiatric: Complaints of depression & anxiety Heart Score: Risk Factors: Risk Factors: DM, Current or recent (<one month) smoker, HTN, HLP, family history of CAD, obesity. Risk Scores: Score 0 - 3: 2.5% MACE over next 6 weeks - Discharge Home Score 4 - 6: 20.3% MACE over next 6 weeks - Admit for Clinical Observation Score 7 - 10: 72.7% MACE over next 6 weeks - Early Invasive Strategies Family History: Family History: Noncontributory to presentation Current Medications: Current Meds: See nursing for home meds Allergies: Allergies: Allergies Coded Allergies Type Severity Reaction Last Updated Verified No Known Drug Allergies 08/30/17 No Physical Exam: PE: Constitutional: in acute emotional distress, non-toxic appearance. [] HENT: Normocephalic, atraumatic, bilateral external ears normal, oropharynx moist, no oral exudates, nose normal. [] Eyes: PERRLA, EOMI, conjunctiva normal, no discharge. [] Neck: Normal range of motion, no tenderness, supple, no stridor. [] Cardiovascular:Heart rate regular rhythm, no murmur [] Lungs & Thorax: Bilateral breath sounds equal apex with scattered wheezes auscultation [] Abdomen: Bowel sounds normal, soft, no tenderness, no masses, no pulsatile masses. Vaginal exam. Findings of hysterectomy scar. No marked discharge. Skin: Warm, dry, no erythema, no rash. [] Tattoos. Back: No tenderness, no CVA tenderness. [] Extremities: No tenderness, no cyanosis, no clubbing, ROM intact, no edema. Foot scar. White painted toe nails Neurologic: Alert and oriented X 3, normal motor function, normal sensory function, no focal deficits noted. [] Psychologic: Affect extremely anxious, judgement normal, mood depressed but denies suicidal ideation. Does admit to recurring invasive thoughts of having a cquired STD infection. EKG: EKG: [] Radiology/Procedures: Radiology/Procedures: [] Course & Med Decision Making: Course & Med Decision Making Pertinent Labs and Imaging studies reviewed. (See chart for details) Patient follow-up pending lab tests. Patient to take complete course of doxycycline 100 mg twice a day for 14 days. Patient then to complete 3 days of Diflucan. Patient to follow-up with [facility]. Patient to follow-up with primary care. Patient encouraged to consider returning to counseling for her anxiety and depressive thoughts. Patient practice safe sex. Patient to keep follow-up on her thyroid issues of endocrinology and primary. Impression: 1. History of unprotected sex and fear of STD Infection 2. History of HPV 3. History of anxiety disorder and depression 4. History of autoimmune thyroiditis 5. History of polycystic ovary disease [] Dragon Disclaimer: Dragon Disclaimer: This electronic medical record was generated, in whole or in part, using a voice recognition dictation system. Departure Departure: Disposition: 01 HOME/RESIDENCE PRIOR TO ADM Condition: STABLE Referrals: MICHAEL BULLARD MD (PCP) Scripts Fluconazole (DIFLUCAN) 100 Mg Tablet 100 MG PO DAILY for post antibiotic for 3 Days, #3 TAB Prov: EVARISTO NORTH MD 08/29/19 Doxycycline Hyclate (DOXYCYCLINE HYCLATE) 100 Mg Tablet.dr 100 MG PO BID for posibleSTD exposure for 14 Days, #28 TAB Prov: EVARISTO NORTH MD 08/29/19 Dragon Disclaimer This chart was dictated in whole or in part using Voice Recognition software in a busy, high-work load, and often noisy Emergency Department environment. It may contain unintended and wholly unrecognized errors or omissions. EVARISTO NORTH MD August 28, 2019 22:02
[2019-08-28 23:49] LABS: BARBITURATES NEG (NEG); BENZODIAZEPINES NEG (NEG); CANNABINOIDS NEG (NEG); COCAINE NEG (NEG); METHADONE NEG (NEG); OPIATES NEG (NEG); PHENCYCLIDINE NEG (NEG)
[2019-08-28 23:54] LABS: BACTERIA,URINE 0 /HPF (0-FEW); BILIRUBIN,URINE NEG (NEG); CLARITY,URINE CLEAR; COLOR,URINE YELLOW; GLUCOSE,URINE NEG (NEG); NITRITE,URINE NEG (NEG); RBC,URINE 0 /HPF (0-2); SQUAMOUS EPITHELIAL CELL,UR FEW /LPF; UROBILINOGEN,URINE 0.2 mg/dL (0.2 mg/dL); WBC,URINE RARE /HPF (0-4)
[2019-08-29 00:01] LABS: AMPHETAMINE/METHAMPHETAMINE NEG (NEG)
[2019-08-29] MEDS ORDERED: IV RINGERS SOLUTION,LACTATED 1,000 ML IV SCH (00:30)
[2019-08-29] MEDS ORDERED: DOXY-96 PO (00:50)
[2019-08-29] MEDS ORDERED: FLUC100T7 PO (00:50)
[2019-08-29] MEDS ORDERED: cefTRIAXone SODIUM 1 GM VIAL ONE (00:56)
[2019-08-29] MEDS ORDERED: IV NORMAL SALINE 50ML 50 ML ONE (00:56)
[2019-08-29] MEDS ORDERED: AZITHROMYCIN 250 MG TABLET. PO ONE (01:00)
[2019-08-29] MEDS ORDERED: ONDANSETRON PF 4 MG/2 ML VIAL. IVP ONE (01:00)
[2019-08-29] MEDS ORDERED: metroNIDAZOLE 500 MG TABLET PO ONE (01:00)
[2019-08-29 01:08] LABS: BASO # 0.1 x10^3/uL (0.0-0.2); BASO % 1 % (0-3); EOS # 0.1 x10^3/uL (0.0-0.7); EOS % 1 % (0-3); HEMATOCRIT 43.2 % (36.0-47.0); HEMOGLOBIN 14.7 g/dL (12.0-15.5); LYMPH # 2.6 x10^3/uL (1.0-4.8); LYMPH % 34 % (24-48); MEAN CORPUSCULAR HEMOGLOBIN 33 pg (25-35); MEAN CORPUSCULAR HGB CONC 34 g/dL (31-37); MEAN CORPUSCULAR VOLUME 97 fL (79-100); MONO # 0.5 x10^3/uL (0.0-1.1); MONO % 7 % (0-9); NEUT # 4.3 x10^3uL (1.8-7.7); NEUT % 57 % (31-73); PLATELET COUNT 248 x10^3/uL (140-400); RED BLOOD COUNT 4.44 x10^6/uL (3.50-5.40); RED CELL DISTRIBUTION WIDTH 13.5 % (11.5-14.5); WHITE BLOOD COUNT 7.6 x10^3/uL (4.0-11.0)
[2019-08-29 01:15] LABS: CALCIUM 9.5 mg/dL (8.5-10.1); CREATININE 0.9 mg/dL (0.6-1.0); GFR 71.7; POTASSIUM 3.5 mmol/L (3.5-5.1)
[2019-08-29 01:21] LABS: ALBUMIN 4.1 g/dL (3.4-5.0); DIRECT BILIRUBIN 0.2 mg/dL (0.0-0.2); TOTAL BILIRUBIN 0.7 mg/dL (0.2-1.0); TOTAL PROTEIN 7.3 g/dL (6.4-8.2)
[2019-08-29 02:25] VITALS: BP 106/75
[2019-08-30 19:07] LABS: CHLAMYDIA PROBE Negative (Negative)
== END 2019-08-29 02:25 | disposition home or self-care (01) ==
LOC: ER 21:54
DX: Z20.2 Contact with and (suspected) exposure to infections with a predominantly sexual mode of transmission (principal); R30.0 Dysuria; A63.0 Anogenital (venereal) warts; E06.3 Autoimmune thyroiditis; E28.2 Polycystic ovarian syndrome; F41.9 Anxiety disorder, unspecified; F32.9 Major depressive disorder, single episode, unspecified; E05.90 Thyrotoxicosis, unspecified without thyrotoxic crisis or storm; E03.9 Hypothyroidism, unspecified; G43.909 Migraine, unspecified, not intractable, without status migrainosus; F17.210 Nicotine dependence, cigarettes, uncomplicated; Z90.710 Acquired absence of both cervix and uterus
CPT/HCPCS: 36415; 80048; 80076; 80307; 81001; 81025; 84443; 85025; 86592; 86703; 86705; 86709; 86803; 87252; 87340; 87491; 87591; 96365; 96375; 99285; J0456; J0696; J2405; J7120

== ENCOUNTER → 2019-12-16 | Outpatient (CLI) | payer BC ==
[~2019-12-16] MED LIST changes: +DOXY-96 PO; +FLUC100T7 PO
--- NOTE | 2019-12-16 12:15 | RAD ---
EXAM: Pelvic sonogram. HISTORY: Pain. TECHNIQUE: Transvaginal sonographic imaging of the pelvis was performed. COMPARISON: None. FINDINGS: The uterus is surgically absent. The right ovary measures 4.6 x 3.3 x 3.4 cm in the left ovary measures 3.3 x 1.9 x 2.4 cm. There is a 3.3 x 3.1 x 2.8 cm complex right ovarian cyst, likely hemorrhagic in etiology. There are small bilateral ovarian follicles. There is no pelvic free fluid. IMPRESSION: 1. 3.3 cm complex right ovarian cyst, likely hemorrhagic in etiology. 2. Surgically absent uterus. Electronically signed by: Veronika Prince MD (12/16/2019 12:12 PM) [id number]
== END ==
LOC: US 11:41
PROVIDERS: ATTEND Physician Assistant Medical
DX: N83.291 Other ovarian cyst, right side (principal); Z90.710 Acquired absence of both cervix and uterus
CPT/HCPCS: 76830